=== PATIENT | male | born 1980 | race Caucasian/White ===

== ENCOUNTER → 2016-10-07 | Outpatient (CLI) | payer SELFPAY ==
--- NOTE | 2016-10-07 14:43 | REP ---
SCROTAL ULTRASOUND: Real-time sonographic evaluation of the scrotum and contents performed. Testicles are normal in size and echotexture, the right testicle measuring 4.9 x 2.3 x 3.1 cm and left testicle 4.8 x 2.2 x 3.3 cm. There is no testicular mass or torsion. Blood flow is seen in each testicle with duplex Doppler evaluation, RI of the right testicle is 0.53 and left testicle 0.45. Two tiny cysts are seen in the head of the left epididymis. No fluid collection is seen with only trace hydroceles noted. IMPRESSION: No testicular mass or torsion. Signed by Clifton An MD 10/07/2016 05:05 P
== END ==
LOC: M RAD 13:11
PROVIDERS: ATTEND Physician Assistant
DX: N50.819 Testicular pain, unspecified (principal)